=== PATIENT | male | born 1955 | race Caucasian/White ===

== ENCOUNTER 2019-07-04 12:47 | Day surgery (SDC) | payer MEDICARE ==
[~2019-07-04] VITALS: Ht 172.7 cm; Wt 102.1 kg
[~2019-07-04 12:47] MED LIST: BAKING SODA; CBD OIL PO; DIAZEPAM5 MG PO; FISH OIL1000 MG PO; FLEXERIL5 MG PO; GABAPENTIN300 MG PO; GNP RED YEAST RICE PO; GNP RED YEAST600 MG PO; IRON COMPLEX PO; LEXAPRO10 MG PO; LISINOPRIL20 MG PO; LORATADINE10 M3 PO; MELATONIN5 M3 PO; MELOXICAM7.5 MG PO; MILK THISTLE150 MG PO; MULTI VITAMN PO; NIACIN500 M5 PO; OXYCODONE15 MG PO; OXYCONTIN40 MG PO; PERCOCET 10/31 COMBO PO; PROSTATE HEALTH PO; SAW PALMETTO500 MG PO; SYMBICORT1 AE1 IN; TAMSULOSIN0.4 MG PO; VALIUM5 MG PO; VENTOLIN HF1 IN; VENTOLIN HFA IN; VITAMIN D31000 UNI1 PO; [UNRECOGNIZED DRUG - MIXTURE]; [UNRECOGNIZED DRUG - OTHER]; [UNRECOGNIZED DRUG - OTHER] PO
[2019-07-04 13:09] LABS: BARBITURATES NEGATIVE (NEGATIVE); COCAINE NEGATIVE (NEGATIVE); METHADONE NEGATIVE (NEGATIVE); TETRAHYDROCANNABIONOL POSITIVE (NEGATIVE); TRICYLIC ANTIDEPRESSANTS NEGATIVE (NEGATIVE)
[2019-07-04 13:10] LABS: OXCYCODONE POSITIVE (NEGATIVE)
[2019-07-04 15:24] VITALS: BP 137/88
== END 2019-07-04 15:10 | disposition home or self-care (01) ==
LOC: ORM 12:47 → ENDO 13:35 → ORM 15:00
PROVIDERS: ATTEND Surgery
PROC: 0DJD8ZZ Inspection of Lower Intestinal Tract, Via Natural or Artificial Opening Endoscopic (ICD-10-PCS; principal; 2019-07-04)
PROC: 0DJ08ZZ Inspection of Upper Intestinal Tract, Via Natural or Artificial Opening Endoscopic (ICD-10-PCS; 2019-07-04)
PROC: 0HBDXZX Excision of Right Lower Arm Skin, External Approach, Diagnostic (ICD-10-PCS; 2019-07-04)
PROC: 0HBEXZZ Excision of Left Lower Arm Skin, External Approach (ICD-10-PCS; 2019-07-04)
DX: Z12.11 Encounter for screening for malignant neoplasm of colon (principal); Q43.8 Other specified congenital malformations of intestine; K64.8 Other hemorrhoids; K44.9 Diaphragmatic hernia without obstruction or gangrene; K29.70 Gastritis, unspecified, without bleeding; K29.80 Duodenitis without bleeding; C44.629 Squamous cell carcinoma of skin of left upper limb, including shoulder; L82.0 Inflamed seborrheic keratosis; I10 Essential (primary) hypertension; G89.29 Other chronic pain; F17.210 Nicotine dependence, cigarettes, uncomplicated; Z86.010 Personal history of colon polyps; Z79.891 Long term (current) use of opiate analgesic; Z85.828 Personal history of other malignant neoplasm of skin
CPT/HCPCS: 11106; 11602; 43235; G0105

== ENCOUNTER 2021-07-09 15:03 | Emergency (ER) | payer MEDICARE ==
[~2021-07-09] VITALS: Ht 172.7 cm; Wt 85.0 kg
[2021-07-09] MEDS ORDERED: OXYCONTIN60 MG PO (16:30)
[2021-07-09] MEDS ORDERED: TAMSULOSIN HCL0.4 MG PO (16:30)
[2021-07-09] MEDS ORDERED: LISINOPRIL5 MG PO (16:31)
[2021-07-09] MEDS ORDERED: DIAZEPAM5 M1 PO (16:31)
[2021-07-09] MEDS ORDERED: LEVOTHYROXIN88 MC1 PO (16:31)
[2021-07-09] MEDS ORDERED: OMEPRAZOLE DR20 MG PO (16:32)
[2021-07-09] MEDS ORDERED: LOPRESSOR25 M1 PO (16:32)
[2021-07-09] MEDS ORDERED: SIMVASTATIN40 MG PO (16:32)
[2021-07-09] MEDS ORDERED: OMNI-PAC300 MG PO (17:17)
[2021-07-09] MEDS ORDERED: BACTRIM DS1 TAB PO (17:17)
[2021-07-09 17:25] VITALS: BP 116/63
== END 2021-07-09 17:25 | disposition home or self-care (01) ==
LOC: ED 15:03
PROC: 0V95XZZ Drainage of Scrotum, External Approach (ICD-10-PCS; principal; 2021-07-09)
DX: N49.2 Inflammatory disorders of scrotum (principal); I10 Essential (primary) hypertension; F17.210 Nicotine dependence, cigarettes, uncomplicated